=== PATIENT | male | born 1990 | race Caucasian/White ===

== ENCOUNTER 2019-09-11 19:30 | Emergency (ER) | payer OTHER, SELFPAY ==
[2019-09-11 19:58] VITALS: BP 105/75; PULSE 70; RESP 16; TEMP 36.4; O2SAT 98
--- NOTE | 2019-09-11 20:06 | ED.URI ---
HPI - URI/Sore Throat General Chief Complaint: Upper Respiratory Infection Stated Complaint: Cold/flu Time Seen by Provider: 09/11/19 20:07 Source: patient, family and RN notes reviewed Mode of arrival: ambulatory Limitations: no limitations History of Present Illness HPI Narrative: 28-year-old male who [facility] with complaints of fever, headache, nasal congestion, cough since Sunday evening. Patient states he spiked a temperature this evening of 101.9F took Tylenol sinus for his symptoms.Patient states that he has been taking Tylenol severe sinus OTC for his symptoms. Patient states that sinus drainage has been clear and he feels congested in his sinus region and has frontal headache and has pressure behinds his eyes, denies any sore throat or ear pain. Patient states his cough is nonproductive, denies any dyspnea or any wheezing with SAO2 98% on room air. MD elicited complaint: fever, cough, rhinorrhea, nasal congestion, sinus pain and other (headache) Pertinent past history: sinusitis Onset (ago): day(s) (2) Consistency: progressively worsening Severity: moderate Description of mucous: clear Able to tolerate fluids by mouth: Yes Exacerbating factors: leaning forward Relieving factors: nothing Associated symptoms: fever, chills, headache, rhinorrhea, nasal congestion and cough Treatments prior to arrival: acetaminophen and cold medicine Related Data Allergies Allergy/AdvReac Type Severity Reaction Status Date / Time No Known Allergies Allergy Unverified 03/22/19 19:03 Review of Systems Review of Systems: Narrative: CONSTITUTIONAL: Positive fever, chills, or sweats. EYES: Denies visual changes, redness, or discharge. ENT: Positive rhinorrhea, congestion, no sore throat, or otalgia. CARDIOVASCULAR: Denies chest pain, palpitations, or edema. RESPIRATORY:Positive cough no dyspnea. GASTROINTESTINAL: Denies abdominal pain, nausea, vomiting, or diarrhea. GENITOURINARY: Denies dysuria or hematuria. SKIN: Denies rash or itching. MUSCULOSKELETAL: Denies back pain, joint pain, or myalgia. NEUROLOGIC: Positive headache, no numbness, or weakness. PSYCHIATRIC: Denies anxiety or depression. All systems reviewed & are unremarkable except as noted in HPI and below PMFSH Past Medical History Medical History (Updated 09/15/19 @ 19:31 by Nataliia Pressley NP) Staph skin infection Social History Social History (Updated 09/15/19 @ 19:30 by Nataliia Pressley NP) Smoking status: Former smoker Additional smoking assessment comments: quit 6 years ago Living arrangements: with family Gender identity (if verbalized by the patient): Male Comments At time of signature, agree with nursing past medical, social history. There is no relevant family history pertinent to the presenting complaint Exam Narrative: Exam Narrative: GENERAL: Well-appearing, well-nourished, and in no acute distress. HEAD: Normocephalic, atraumatic. EYES: PERRLA and EOMI. ENT: Nares red, edematous clear rhinorrhea no, headache and pressure behind eyes stated, no epistaxis. Mucous membranes moist.TM's normal with good light reflex, throat mild redness no swelling or exudates, post nasal drainage noted NECK: Supple.no lymphadenopathy CHEST: Clear to auscultation. No respiratory distress.[id number]% on room air. HEART: Regular rate and rhythm. No murmur heard. Normal peripheral pulses. ABDOMEN: Soft, nontender, nondistended, normal active bowel sounds. EXTREMITIES: Normal range of motion. No edema. SKIN: Warm, dry, no rash. NEURO: No focal deficits. Alert and oriented x3. Course Vital Signs Vital signs: Vital Signs Temperature 36.4 C L 09/11/19 19:58 Pulse Rate 70 09/11/19 19:58 Respiratory Rate 16 09/11/19 19:58 Blood Pressure 105/75 09/11/19 19:58 Pulse Oximetry 98 09/11/19 19:58 Temperature 36.4 C L 09/11/19 19:58 Pulse Rate 70 09/11/19 19:58 Respiratory Rate 16 09/11/19 19:58 Blood Pressure 105/75 09/11/19 19:58
== END 2019-09-11 20:35 | disposition home or self-care (01) ==
PROVIDERS: Emergency Provider Registered Nurse
DX: J00 Acute nasopharyngitis [common cold] (principal); J01.90 Acute sinusitis, unspecified; Z87.891 Personal history of nicotine dependence
CPT/HCPCS: 87804; 99213; G0463

== ENCOUNTER 2019-11-07 16:50 | Emergency (ER) | payer OTHER, SELFPAY ==
--- NOTE | 2019-11-07 16:54 | ED.SKABFB ---
HPI - Skin/Abscess/Foreign Bdy General Chief complaint: Skin/Abscess/Foreign Body Stated complaint: itchiness all over body Time Seen by Provider: 11/07/19 17:09 Source: patient and RN notes reviewed Mode of arrival: ambulatory Limitations: no limitations History of Present Illness HPI narrative: 28-year-old male presents with concern for pruritus. Reports he has had generalized itching with a rash that comes and goes. He reports this occurs in relation to him feeling anxious. He reports itching and rash may only last a few minutes. He reports sometimes these episodes happen more than once daily, sometimes he goes several days without them happening. He denies any stridor, difficulty breathing, new personal care products or household products. Denies any other person in his home has similar rash. Reports history of anxiety, has never been treated for anxiety. MD complaint: rash Related Data Allergies Allergy/AdvReac Type Severity Reaction Status Date / Time No Known Allergies Allergy Verified 11/07/19 17:14 Review of Systems Review of Systems: Narrative: CONSTITUTIONAL: Denies malaise, chills, sweats, or fever. EYES: Denies visual changes, redness, or discharge. ENT: Denies rhinorrhea, congestion, sinus pain, otalgia or sore throat. CARDIOVASCULAR: Denies chest pain, palpitations, or edema. RESPIRATORY: Denies cough or dyspnea. GASTROINTESTINAL: Denies abdominal pain, nausea, vomiting, diarrhea SKIN: Reports intermittent pruritic rash MUSCULOSKELETAL: Denies myalgia. NEUROLOGIC: Denies numbness, weakness, or headache. All systems reviewed & are unremarkable except as noted in HPI and below PMFSH Past Medical History Medical History (Updated 11/07/19 @ 17:16 by Beth Arriaga NP) Staph skin infection Social History Social History (Updated 09/15/19 @ 19:30 by Nataliia Pressley NP) Smoking status: Former smoker Additional smoking assessment comments: quit 6 years ago Gender identity (if verbalized by the patient): Male Comments At time of signature, agree with nursing past medical, surgical, social and family history. There is no relevant family history pertinent to the presenting complaint Exam Narrative: Exam Narrative: GENERAL: Well-appearing, well-nourished, and in no acute distress. HEAD: Normocephalic, atraumatic. EYES: PERRLA, conjunctivae clear ENT: Nares clear. Mucous membranes moist. NECK: Supple. CHEST: No respiratory distress. Clear to auscultation. No bony deformities, no asymmetry. Speaks in full sentences. HEART: Regular rate and rhythm. No murmur heard. SKIN: Warm, dry. Small patch of pink pinpoint papules noted to bilateral inner upper arms. No other rash noted NEURO: Alert and oriented x3. PSYCH: Normal mood and affect Course Course Emergency Course: Patient is aware of diagnosis, understands and agrees to treatment plan. Anticipatory guidance given. Patient agrees to follow-up as directed and is aware of reasons to seek care at the emergency department. Portions of this record may have been created with voice recognition software Vital Signs Vital signs: Vital Signs Temperature 99.2 F 11/07/19 16:56 Pulse Rate 88 11/07/19 16:56 Respiratory Rate 16 11/07/19 16:56 Blood Pressure 118/77 11/07/19 16:56 Pulse Oximetry 99 11/07/19 16:56 Temperature 99.2 F 11/07/19 16:56 Pulse Rate 88 11/07/19 16:56 Respiratory Rate 16 11/07/19 16:56 Blood Pressure 118/77 11/07/19 16:56 Pulse Oximetry 99 11/07/19 16:56 Reviewed. MDM - Skin/Abscess/Foreign Bdy MDM Narrative Medical decision making narrative: Does not appear at this time to be erythema multiforme, bullous, SJS, TEN; no evidence at this time to suggest RMSF, endocarditis or Lyme disease; patient looks well, nontoxic and is tolerating oral intake; no neurologic signs or symptoms; no headache, photophobia or neck pain; afebrile; appropriate for initial outpatient treatment; discussed the importa
[2019-11-07 16:56] VITALS: BP 118/77; PULSE 88; RESP 16; TEMP 37.3; O2SAT 99
== END 2019-11-07 17:20 | disposition home or self-care (01) ==
PROVIDERS: Emergency Provider Nurse Practitioner
DX: R21 Rash and other nonspecific skin eruption (principal); F41.9 Anxiety disorder, unspecified; Z87.891 Personal history of nicotine dependence
CPT/HCPCS: 99213; G0463